=== PATIENT | male | born 1940 | race Caucasian/White ===

== ENCOUNTER 2023-12-10 14:40 | Inpatient (IN) | payer SELFPAY ==
[2023-12-10 15:20] VITALS: BP 123/75; PULSE 86; RESP 21; TEMP 36.4; O2SAT 93; BMI 43.7
[2023-12-10] MEDS: Glimepiride 1 MG Tablet 1.5 MG PO (17:31)
[2023-12-10] MEDS: Lisinopril 5 MG Tablet PO (17:31)
[2023-12-10] MEDS: Insulin Lispro 100 UNIT/ML INSULN.PEN SC ×2 (17:32→21:44)
[2023-12-10 17:35] LABS: Bedside Glucose 232 mg/dL (74-106)
[2023-12-10] MEDS: Acetaminophen 325 MG Tablet 650 MG PO ×2 (17:36→23:20)
[2023-12-10 18:00] VITALS: BP 126/85; PULSE 95; RESP 20; TEMP 36.2; O2SAT 92
[2023-12-10 20:12] VITALS: PULSE 98; RESP 16; O2SAT 97
[2023-12-10 20:30] VITALS: BP 137/84; PULSE 82; RESP 16; TEMP 36.7; O2SAT 97
[2023-12-10 21:25] VITALS: PULSE 99; O2SAT 93
[2023-12-10] MEDS: Senna/Docusate Sodium 1 Tablet 2 TABLET PO (21:36)
[2023-12-10] MEDS: Atorvastatin Calcium 40 MG Tablet PO (21:36)
[2023-12-10] MEDS: Menthol/Lanolin/Calamine/Znox 113 GM Tube 1 APPLIC TOPICAL (21:42)
[2023-12-10] MEDS: Nystatin Powder 15gm Bottle 1 APPLIC TOPICAL (21:43)
--- NOTE | 2023-12-10 21:55 | NURSING ---
Overnight pulse ox initiated by RT
[2023-12-10 21:56] VITALS: O2SAT 93
[2023-12-10 22:06] LABS: Bedside Glucose 190 mg/dL (74-106)
[2023-12-11] VITALS (11 sets, daily range): BP systolic 96–145; BP diastolic 58–90; PULSE 84–108; RESP 16–18; TEMP 36.4–36.9; O2SAT 88–96
[2023-12-11] MEDS: Enoxaparin 40 MG/0.4 ML Syringe SC (05:16)
[2023-12-11] MEDS: Ammonium Lactate 225 gm Bottle 1 APPLIC TOPICAL (05:16)
[2023-12-11] MEDS: Acetaminophen 325 MG Tablet 650 MG PO ×4 (05:16→23:18)
[2023-12-11 06:20] LABS: Bedside Glucose 139 mg/dL (74-106)
[2023-12-11 07:05] LABS: Hematocrit 40.3 % (40-54); Hemoglobin 13.6 g/dL (13.0-16.5); Mean Corp Hgb Conc 33.7 g/dL (32-36); Mean Corpuscular Hgb 31.9 pg (27.0-32.0); Mean Corpuscular Volume 94.6 fL (80-94); Mean Platelet Vol. 10.3 fl (6.2-12.0); Platelet Count 205 K/mm3 (150-450); RBC Distribution Width CV 12.4 % (11.6-14.6); RBC Distribution Width SD 43.1 fl (35.1-43.9); Red Blood Count 4.26 M/mm3 (4.6-6.2); White Blood Count 7.5 K/mm3 (4.4-11.0)
[2023-12-11 07:50] LABS: ALB/GLOB Ratio 0.7 RATIO (0.9-2.4); AST(SGOT) 31 U/L (15-37); Alanine Aminotransfer ALT/SGPT 33 U/L (16-61); Albumin, Serum 2.7 g/dL (3.2-5.0); Alkaline Phosphatase 51 U/L (45-117); Anion Gap 5 (5-15); BUN 17 mg/dL (7-18); BUN/Creat Ratio 16.3 RATIO (10-20); Calcium,Total 8.6 mg/dL (8.5-10.1); Chloride 108 mmol/L (98-107); Creatinine, Serum 1.04 mg/dL (0.70-1.30); EST Glomerular Filtration Rate 72 mL/min (>60); Est Glom Filt Rate - Afr Amer 87 mL/min (>60); Estimated Creatinine Clearance 66.33 ml/min; Globulin 3.9 g/dL (2.2-4.2); Glucose 146 mg/dL (74-106); Phosphorus 2.6 mg/dL (2.5-4.9); Potassium 3.8 mmol/L (3.5-5.1); Protein, Total 6.6 g/dL (6.4-8.2); Sodium Level 139 mmol/L (136-145)
[2023-12-11] MEDS: Aspirin E.C. 81 MG Tablet PO (08:17)
[2023-12-11] MEDS: Glimepiride 2 MG Tablet PO (08:17)
[2023-12-11] MEDS: Senna/Docusate Sodium 1 Tablet 2 TABLET PO ×2 (08:17→21:56)
[2023-12-11] MEDS: Clopidogrel Bisulfate 75 MG Tablet PO (08:17)
[2023-12-11] MEDS: Nystatin Powder 15gm Bottle 1 APPLIC TOPICAL ×2 (08:18→21:59)
[2023-12-11] MEDS: Menthol/Lanolin/Calamine/Znox 113 GM Tube 1 APPLIC TOPICAL ×2 (08:20→21:58)
--- NOTE | 2023-12-11 09:33 | CPS ---
Pt sat was 87-88% on RA. This RT placed pt on NC at 1L. RN aware
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
--- NOTE | 2023-12-11 11:10 | REHABEVAL_ITS ---
Admission Information Primary Diagnosis:: Post stroke debility Status Changes from Prescreening?: No changes Identified Actual Problem List:: Bleeding (Having epistaxis at times.), Skin Intergrity, Cognitve Impr/Memory Loss, Bowel, Constipation, Mobility Impaired, Self Care Deficit, Know.Dfct/Disease Process, Know.Dfct of Medicaitons, Diabetes, Hyperglycemia, BP, Hypertension, Alteration/ Air Exchange and Alteration-Leisure Activ. Potential Problem List:: DVT, Bleeding, Infection, UTI, Aspiration, Falls, Skin Integrity and Depression Risk of Complications DVT: LMWH and LIZ Hose Bleeding: Monitor Lab Values, Nursing to Teach Precautions for anti-coagulation therapy., Wound, if applicable, to be assessed every shift. and Stroke patients assessed for lethargy or change in status. Infection: Clinical Staff to Monitor for S/S of infection: and S/S of infection include fever, redness, warmth, etc. Urinary Tract Infection: Monitor for frequency, burning, discomfort, or incontinence. and Nursing will obtain urine sample for urinalysis and C&S when ordered. Aspiration: Clinical staff will monitor for coughing, drooling, congestion., Speech will evaluate swallowing and dsyphasia. and Nursing will monitor patient swallowing during meals. Falls: Patient will be evaluated for Fall Precautions and Patient will be placed on Fall Precautions as indicated per protocol. Skin Breakdown: Nursing will assess skin daily using assessment tool. and Nursing will place on Skin Breakdown Precautions as indicated. Pain: Clinical staff will assess patient's pain level per protocol., Medications will be given, if needed, and the pain level reassessed. and Other methods: Massage, distraction, decrease stimulus, etc. used PRN. Plan of Care Patient requires physician specializing in physical medicine and rehab oversight to provide close medical supervision of rehab issues including: Pain Management, Sleep Problems, Bowel and Bladder, Medical and co-morbidity Management, DVT prophylaxis, Rehabilitation Leadership and Coordination of treatment team Patient needs Physical Therapy: For a minimum of 1 hour and At least 5 out of 7 days Patient needs Physical Therapy to improve:: Mobility, Strengthening, Transfers, Stretching, ROM, Endurance, Stairs, Gait and Balance Patient needs Occupational Therapy: For a minimum of 1 hour and At least 5 out of 7 days Patient needs Occupational Therapy to improve ADL's incl.: Eating, Grooming, Bathing, Dressing, Toileting, Toilet transfers, Community Reintegration, Higher functioning activities, Household tasks, Adaptive Equipment, Splinting and Other activities as determined Patient requires speech therapy: For a minimum of 1 hour and At least 5 out of 7 days Patient requires speech therapy for: Swallowing, Cognition, Language Skills and Compensatory Strategies Patient requires 24/ Rehabilitation Nursing for: Pain Issues, Identifying and preventing risk factors, Monitoring and reporting current medical conditions, Assisting with ambulation, transfer, and all ADL's, Teaching patients about disease process and medications, Family teaching, Providing safe environment, Bowel and Bladder Issues, Skin integrity and Medication Management Patient needs Medical Director Occupational Health/ Case Management for: Discharge Planning, Arranging Home Equipment or Services and Family Interventions Patient needs Dietary and Nutrition Services for: Adequate Nutrition, Nut ritional Supplements and Nutritional Education Goals Goals Patient will remain: free from falls Patient will perform eating at: MOD I level of assist. Patient will perform bed mobility at: MOD I level of assist. Patient will complete transfers from bed to chair at: - (Min assist) Patient will ambulate: - (150 feet with least restrictive device at mod I He has been using a rollator at home prior to the stroke.) Patient will complete upper body dressing at: - (Set up) Patient will complete lower body dressing at: - (Minimal assistance with adaptive equipment as needed) Patient will complete toilet transfer at: - (Min assist with adaptive equipment as needed to increase independence with self-care.) Patient will complete toileting at: - (Min assist) Patient will perform bathing at: - (Supervision for upper body bathing and min assist with adaptive equipment as needed for lower body bathing.) Patient will perform Tub/Shower transfer at: - (Minimal assistance using DME as needed.) Patient will complete grooming at: - (Set up level while seated at the sink) Patient will achieve: 12 stairs (12 stairs at mod I with bilateral handrails to allow access to the main floor of the house he is currently living in.) Patient will have pain level of: of 3 or less Patient's skin will: remain intact Patient will receive: adequate nutrition. Discharge Planning Pt Prognosis for Sig. Practical Improv. w/in Reasonable Time: Good Estimated Length of stay (days): 28 Anticipated D/C Destination: Home w/ family or friends Was Preadmission Assessment Accurate?: Yes
[2023-12-11 11:59] LABS: Bedside Glucose 185 mg/dL (74-106)
[2023-12-11] MEDS: Insulin Lispro 100 UNIT/ML INSULN.PEN SC ×2 (12:13→17:17)
[2023-12-11 17:13] LABS: Bedside Glucose 179 mg/dL (74-106)
[2023-12-11] MEDS: Lisinopril 5 MG Tablet PO (17:18)
[2023-12-11] MEDS: Glimepiride 1 MG Tablet 1.5 MG PO (17:20)
[2023-12-11] MEDS: Atorvastatin Calcium 40 MG Tablet PO (21:56)
[2023-12-11 22:34] LABS: Bedside Glucose 176 mg/dL (74-106)
[2023-12-12] MEDS: Enoxaparin 40 MG/0.4 ML Syringe SC (05:48)
[2023-12-12] MEDS: Acetaminophen 325 MG Tablet 650 MG PO ×4 (05:49→23:48)
[2023-12-12] MEDS: Ammonium Lactate 225 gm Bottle 1 APPLIC TOPICAL (05:49)
[2023-12-12 06:00] VITALS: BP 139/80; PULSE 84; RESP 19; TEMP 36.6; O2SAT 96
[2023-12-12 06:34] LABS: Bedside Glucose 139 mg/dL (74-106)
[2023-12-12] MEDS: Glimepiride 2 MG Tablet PO (08:11)
[2023-12-12] MEDS: Senna/Docusate Sodium 1 Tablet 2 TABLET PO ×2 (08:11→21:26)
[2023-12-12] MEDS: Clopidogrel Bisulfate 75 MG Tablet PO (08:12)
[2023-12-12] MEDS: Aspirin E.C. 81 MG Tablet PO (08:13)
[2023-12-12] MEDS: Nystatin Powder 15gm Bottle 1 APPLIC TOPICAL ×2 (08:13→21:27)
[2023-12-12] MEDS: Menthol/Lanolin/Calamine/Znox 113 GM Tube 1 APPLIC TOPICAL ×2 (08:13→21:27)
[2023-12-12 10:00] VITALS: O2SAT 96
[2023-12-12] MEDS: Insulin Lispro 100 UNIT/ML INSULN.PEN SC ×2 (11:44→17:00)
[2023-12-12 12:00] LABS: Bedside Glucose 213 mg/dL (74-106)
[2023-12-12 16:59] LABS: Bedside Glucose 194 mg/dL (74-106)
[2023-12-12] MEDS: Glimepiride 1 MG Tablet 1.5 MG PO (17:01)
[2023-12-12] MEDS: Lisinopril 5 MG Tablet PO (17:01)
[2023-12-12 17:58] VITALS: BP 146/84; PULSE 87; RESP 16; TEMP 36.9; O2SAT 93
[2023-12-12] MEDS: Atorvastatin Calcium 40 MG Tablet PO (21:26)
[2023-12-12 22:29] LABS: Bedside Glucose 180 mg/dL (74-106)
[2023-12-13] MEDS: Ammonium Lactate 225 gm Bottle 1 APPLIC TOPICAL (05:34)
[2023-12-13] MEDS: Acetaminophen 325 MG Tablet 650 MG PO ×4 (05:36→23:51)
[2023-12-13] MEDS: Enoxaparin 40 MG/0.4 ML Syringe SC (05:36)
[2023-12-13 05:40] VITALS: BP 110/61; PULSE 76; RESP 17; TEMP 36.7; O2SAT 95
[2023-12-13] MEDS: Glimepiride 2 MG Tablet PO (07:24)
[2023-12-13] MEDS: Senna/Docusate Sodium 1 Tablet 2 TABLET PO ×2 (07:24→21:31)
[2023-12-13 07:25] VITALS: O2SAT 95
[2023-12-13] MEDS: Clopidogrel Bisulfate 75 MG Tablet PO (07:25)
[2023-12-13] MEDS: Aspirin E.C. 81 MG Tablet PO (07:25)
[2023-12-13] MEDS: Nystatin Powder 15gm Bottle 1 APPLIC TOPICAL ×2 (07:25→21:32)
[2023-12-13] MEDS: Menthol/Lanolin/Calamine/Znox 113 GM Tube 1 APPLIC TOPICAL ×2 (07:25→21:31)
[2023-12-13 07:29] LABS: Bedside Glucose 136 mg/dL (74-106)
[2023-12-13 11:53] LABS: Bedside Glucose 178 mg/dL (74-106)
[2023-12-13] MEDS: Insulin Lispro 100 UNIT/ML INSULN.PEN SC ×2 (11:55→17:05)
[2023-12-13 16:35] LABS: Bedside Glucose 261 mg/dL (74-106)
[2023-12-13] MEDS: Lisinopril 5 MG Tablet PO (17:05)
[2023-12-13] MEDS: Glimepiride 1 MG Tablet 1.5 MG PO (17:07)
[2023-12-13 17:35] VITALS: BP 141/70; PULSE 96; RESP 20; TEMP 36.8; O2SAT 92
[2023-12-13] MEDS: Atorvastatin Calcium 40 MG Tablet PO (21:31)
[2023-12-13 21:35] VITALS: BP 152/88; PULSE 86; RESP 16; TEMP 36.9; O2SAT 97
[2023-12-13 21:51] LABS: Bedside Glucose 184 mg/dL (74-106)
[2023-12-14] MEDS: Acetaminophen 325 MG Tablet 650 MG PO ×4 (05:33→23:48)
[2023-12-14] MEDS: Ammonium Lactate 225 gm Bottle 1 APPLIC TOPICAL (05:34)
[2023-12-14] MEDS: Enoxaparin 40 MG/0.4 ML Syringe SC (05:35)
[2023-12-14 06:04] VITALS: BP 110/60; PULSE 75; RESP 16; TEMP 37; O2SAT 95
[2023-12-14 06:51] LABS: Bedside Glucose 135 mg/dL (74-106)
[2023-12-14 07:03] VITALS: O2SAT 90
[2023-12-14] MEDS: Glimepiride 2 MG Tablet PO (07:31)
[2023-12-14] MEDS: Aspirin E.C. 81 MG Tablet PO (07:31)
[2023-12-14] MEDS: Menthol/Lanolin/Calamine/Znox 113 GM Tube 1 APPLIC TOPICAL ×2 (07:31→20:49)
[2023-12-14] MEDS: Senna/Docusate Sodium 1 Tablet 2 TABLET PO ×2 (07:31→20:49)
[2023-12-14] MEDS: Clopidogrel Bisulfate 75 MG Tablet PO (07:31)
[2023-12-14] MEDS: Nystatin Powder 15gm Bottle 1 APPLIC TOPICAL ×2 (07:32→20:49)
[2023-12-14 08:03] VITALS: O2SAT 91
[2023-12-14 08:10] VITALS: RESP 18; O2SAT 91
[2023-12-14 11:24] LABS: Bedside Glucose 219 mg/dL (74-106)
[2023-12-14] MEDS: Insulin Lispro 100 UNIT/ML INSULN.PEN SC ×2 (11:57→17:15)
--- NOTE | 2023-12-14 12:55 | CASEMGMT ---
Addendum entered by Shari Scott 12/14/23 13:20: SW provided verbal hand off to [facility] Liaison/PFS for ongoing payment. Original Note: Social Work IDT met with patient, , dtr and son for Team meeting. Discussed patient's progress in PT/OT/ST/SN. Pt is private pay and pays for 7 days at at time. Will ReTeam weekly to determine pt's progress and LOS. Pt will need a sleep study at [place], per Dr. PAREDES to follow for overnight O2 needs as well. SW to coordinate DC needs. LENA also discussed offering family training with son and DIL who cares for pt at baseline. Son appreciative. SW will continue to follow. Shari Scott, PARTNER [employer]IANCE MANAGER BUILDER OPERATOR
--- NOTE | 2023-12-14 14:54 | PCM.PROGNOTE ---
Subjective Subjective Francis was seen on team rounds today. His , daughter Saniya and son-in-law Sean were present in the room for rounds. Afebrile VSS -blood pressure tends to be normal in the morning at 6 AM but it is mildly elevated during the day and is ranged from 141/72 152/88 over the weekend. Heart rate is within normal limits. Maintaining appropriate oxygen saturation on RA - 91-96% on RA while awake. Overnight trending pulse ox revealed hypoxemia while sleeping and he is on O2 while sleeping now. Plan Sleep study on the night of DC from rehab. Pt and family are agreeable to this. DTR and son-in-law are both on PAP therapy. Oral intake - FOOD good FLUIDS good The blood sugar record was reviewed. Blood sugar at supper yesterday was 261 and he received 2 units of insulin. Blood sugar at at bedtime was 184. No hypoglycemia. Discussed with nursing - no problems that need addressed Reviewed the THERAPY notes Medication list reviewed. Family does not know why the Glucophage was discontinued at the previous hospital. He was changed to Amaryl at the last hospital.......? creat clearance is 66 and the GFR is 72 so I do not know why either unless the creat was increased at admission to the previous hospital. Or maybe because he had contrast? He is currently taking Amaryl 2 mg in the a.m. and 1.5 mg at 1700. Objective Data Objective Data Vital Signs: Vital Signs Temp Pulse Resp BP Pulse Ox O2 Del Method O2 Flow Rate 98.6 F 75 18 110/60 91 Room Air 2 12/14/23 06:04 12/14/23 06:04 12/14/23 08:10 12/14/23 06:04 12/14/23 08:10 12/14/23 08:10 12/14/23 06:04 FiO2 21 12/10/23 21:25 Oxygen Flow Rate (L/min) 2 Oxygen Delivery Method Room Air Weight: 279 lb 1.683 oz Body Mass Index (BMI) 43.7 Intake & Output: Intake and Output for Last 24 Hours 12/12/23 12/13/23 12/14/23 23:59 23:59 23:59 Intake Total 1510 / 1610 1350 / 1850 1100 / 1100 Output Total 1125 / 1400 2024 / 2024 500 / 500 Balance 385 / 210 -675 / -175 600 / 600 Lab / Micro Data 12/11/23 06:47 12/11/23 06:47 Labs: Laboratory Results - last 24 hr 12/13/23 16:15: POC Glucose 261 H 12/13/23 21:31: POC Glucose 184 H 12/14/23 06:33: POC Glucose 135 H 12/14/23 11:06: POC Glucose 219 H Assessment & Plan Assessment/Plan (1) Debility: (2) 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 Continue therapy 2. DC the afternoon dose of Amaryl and start Glucophage 500 mg p.o. twice daily. Continue sliding scale insulin 3 times daily AC. 3. Plan sleep study on the night he is discharged from rehab. Will continue supplemental oxygen at 2 L/min anytime he is sleeping 4. BL unna boots applied to the LE's for stasis dermatitis. 3 layer boot with Coban and AQUILINO wraps in addition to the unna boot. 5. Avoid diuretics if possible. Will have him follow up at the wound care center post DC for Circaids for compression. 6. Increase Lisinopril to 7.5 mg 7. Needs an event monitor at discharge. Charges/Coding Visit Charges Inpatient E&M: 87066 Subs Hosp L2
[2023-12-14 16:16] LABS: Bedside Glucose 220 mg/dL (74-106)
[2023-12-14] MEDS: metFORMIN HCl 500 MG Tablet PO (17:00)
[2023-12-14] MEDS: Lisinopril 2.5 MG Tablet 7.5 MG PO (17:16)
[2023-12-14 17:53] VITALS: BP 145/87; PULSE 96; RESP 17; TEMP 36.7; O2SAT 97
[2023-12-14] MEDS: Atorvastatin Calcium 40 MG Tablet PO (20:49)
[2023-12-14 21:30] LABS: Bedside Glucose 147 mg/dL (74-106)
[2023-12-15 06:00] VITALS: BP 116/76; PULSE 72; RESP 16; TEMP 36.4; O2SAT 97
[2023-12-15] MEDS: Acetaminophen 325 MG Tablet 650 MG PO ×3 (06:12→16:58)
[2023-12-15] MEDS: Enoxaparin 40 MG/0.4 ML Syringe SC (06:12)
[2023-12-15 06:53] LABS: Bedside Glucose 133 mg/dL (74-106)
[2023-12-15 07:11] VITALS: O2SAT 97
[2023-12-15] MEDS: Clopidogrel Bisulfate 75 MG Tablet PO (07:14)
[2023-12-15] MEDS: Aspirin E.C. 81 MG Tablet PO (07:14)
[2023-12-15] MEDS: metFORMIN HCl 500 MG Tablet PO ×2 (07:14→16:58)
[2023-12-15] MEDS: Glimepiride 2 MG Tablet PO (07:14)
[2023-12-15] MEDS: Senna/Docusate Sodium 1 Tablet 2 TABLET PO (07:14)
[2023-12-15] MEDS: Menthol/Lanolin/Calamine/Znox 113 GM Tube 1 APPLIC TOPICAL ×2 (07:15→21:21)
[2023-12-15] MEDS: Nystatin Powder 15gm Bottle 1 APPLIC TOPICAL ×2 (07:15→21:22)
[2023-12-15 07:53] VITALS: RESP 18; O2SAT 94
--- NOTE | 2023-12-15 09:03 | NURSING ---
pt off floor to rad for MBS w/speech
--- NOTE | 2023-12-15 09:48 | PCM.PROGNOTE ---
Subjective Subjective Afebrile VSS -blood pressure is well-controlled in the a.m. but elevated at 5 or 6 PM. Has been getting lisinopril at 5 PM. Heart rate is within normal limits. Maintaining appropriate oxygen saturation on RA-90 to 97% on room air while awake. Wearing 2 L of oxygen while sleeping and pulse ox has been in the high 90s. Oral intake - FOOD good FLUIDS good The blood sugar record was reviewed. Has been getting 1 to 2 units of insulin mostly at supper. Fasting was 133 today. He was 147 at at bedtime. Blood sugar at supper yesterday was 220 and lunchtime was 219. He received total 2 units of insulin yesterday. Glucophage was restarted yesterday. Discussed with nursing - no problems that need addressed Reviewed the THERAPY notes Medication list reviewed. Denies pain in his legs today. No SOB, rare cough, no CP, no abd pain and no calf tenderness or dysuria. Objective Data Objective Data Vital Signs: Vital Signs Temp Pulse Resp BP Pulse Ox O2 Del Method O2 Flow Rate 97.6 F L 72 18 116/76 94 Room Air 2 12/15/23 06:00 12/15/23 06:00 12/15/23 07:53 12/15/23 06:00 12/15/23 07:53 12/15/23 07:53 12/15/23 07:11 FiO2 21 12/10/23 21:25 Oxygen Flow Rate (L/min) 2 Oxygen Delivery Method Room Air Weight: 279 lb 1.683 oz Body Mass Index (BMI) 43.7 Intake & Output: Intake and Output for Last 24 Hours 12/13/23 12/14/23 12/15/23 23:59 23:59 23:59 Intake Total 1350 / 1850 1555 / 1555 360 / 360 Output Total 2024 / 2024 925 / 1375 750 / 750 Balance -675 / -175 630 / 180 -390 / -390 Lab / Micro Data 12/11/23 06:47 12/11/23 06:47 Labs: Laboratory Results - last 24 hr 12/14/23 11:06: POC Glucose 219 H 12/14/23 15:55: POC Glucose 220 H 12/14/23 20:51: POC Glucose 147 H 12/15/23 06:14: POC Glucose 133 H Physical Exam Const alert, oriented x3 and no apparent distress General Appearance: cooperative HEENT moist oral mucous membranes Resp normal respiratory effort, normal air movement and clear to auscultation bilaterally Cardio regular rate, regular rhythm and no gallops GI normal to inspection, nondistended, normoactive bowel sounds, soft to palpation and non-tender Extremity Extremity Narrative: Unna boots are in place BL Skin Rashes: no rashes Assessment & Plan Assessment/Plan (1) Debility: (2) 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 Continue therapy 2. Change lisinopril to 5 mg p.o. twice daily 3. Increase the a.m. Glucophage to 750 mg and continue 500 mg at supper. Continue Amaryl 2 mg in the AM. 4. Recheck a BMP Thursday 5. Remove Unna boots on Thursday and reassess need for continued Unna boots. 6. Reviewed the results of the swallowing study today with the speech therapist. Will continue with current diet. Francis has some dysphagia but, he is using compensatory strategies and has not had PNA as OP. Charges/Coding Visit Charges Inpatient E&M: 49468 Subs Hosp L1
[2023-12-15 10:07] VITALS: BP 128/75; PULSE 88; RESP 17; O2SAT 96
[2023-12-15] MEDS: Lisinopril 5 MG Tablet PO ×2 (10:39→21:22)
--- NOTE | 2023-12-15 11:12 | SP.MBSS_ITS ---
Modified Barium Swallow Patient Information Study Date: 12/15/23 Study Time: 09:15 Direct Billable Minutes: 135 Total Minutes procedure & reportin Diagnosis: ischemic CVA posterior cerebral artery territory/Dysphagia Referring Physician: Mitzy Levy Reason for Referral: MBSS recommended following TECHNICAL MGR CBSE - coughing/ throat clearing w/ PO intake - to objectively assess swallow function, identify cause of swallow dysfunction & deficits necessitating intervention, and to trial compensatory strategies for improved specificity of dysphagia interventions provided. Medical History: This patient is an 83 y/o male with a PMHx of ischemic CVA in 2008, morbid obesity, venous insufficiency, DM II (not adequately controlled), Dyslipidemia, suspected sleep apnea, suspected BPH (recent UTI) and HTN who presented to the ED at [facility] on 12/06/2023 complaining of dizziness, slurred speech and difficulty walking when awakening that morning. He was diagnosed with a urinary tract infection and transferred to [facility] for possible CVA. An MRI of the brain demonstrated 2 areas of discrete infarction in the vertebrobasilar territory (left cerebellar hemisphere and left mesial thalamic areas) suggesting possible embolic mechanism. He was admitted to the [facility] Inpatient Rehab Unit at [facility] on 12/10/23 for 3 hours of therapy daily to restore function/independence at or near his level prior to the most recent stroke. He was subsequently referred to and CBSE was completed, which identif ied/necessitated the need for objective assessment via MBSS. Current Diet Ordered: regular textures/thin liquids Dentition: Natural Teeth and Missing Teeth (missing molars) Mental Status: Impaired (slow to process and respond, but sufficient for participation in MBSS ) Respiratory Status: Oxygenating on Room Air Penetration-Aspiration Scale Penetration-Aspiration Scale: OBJECTIVE ASSESSMENT OF SWALLOW FUNCTION (QUANTITATIVE ? PER TRIAL): PENETRATION / ASPIRATION SCALE (CANSECO): 1 = does not enter airway 2 = enters airway/above vocal folds/ejected 3 = enters airway/above vocal folds/not ejected 4 = enters airway/contacts vocal folds/ejected 5 = enters airway/contacts vocal folds/not ejected 6 = enters airway/below vocal folds/ejected 7 = enters airway/below vocal folds/not ejected despite effort 8 = enters airway/below vocal folds/no effort Penetration-Aspiration Scale Score Thin Liquid via teaspoon: Result: 1= does not enter airway Thin Liquid via teaspoon Trial 2: Result: 3= enters airways/above vocal folds/not ejected Thin Liquid via small single sip: cup: Result: 3= enters airways/above vocal folds/not ejected Thin Liquid via small single sip: cup Trial 2: Result: 5= enters airways/contacts vocal folds/not ejected Thin Liquid via cup, cued to swallow Hard & Fast: Result: 3= enters airways/above vocal folds/not ejected Thin Liquid via small single sip: cup Chin tuck: Result: 3= enters airways/above vocal folds/not ejected Thin Liquid via single sip: straw: Result: 5= enters airways/contacts vocal folds/not ejected Kenneth Thick Liquid via small single sip: cup: Result: 5= enters airways/contacts vocal folds/not ejected Pudding via teaspoon: Result: 1= does not enter airway Pudding via teaspoon w/ esophageal clearance screening: Result: 1= does not enter airway Cookie: Result: 1= does not enter airway Thin Liquid via cup w/ a cued 3 second preparatory set: Result: 2= enter airway/above vocal folds/ejected Thin Liquid via cup w/ effortful breath hold/swallow/exhale: Result: 3= enters airways/above vocal folds/not ejected Oral Phase Labial Seal: No Labial Escape Tongue Control During Bolus Hold: Posterior escape of less than half of bolus Bolus Preparation/Mastication: Slow prolonged chewing/mashing with complete recollection Bolus Transport/Lingual Motion: Repetitive/disorganized tongue motion Oral Residue: Trace residue lining oral structures Pharyngeal Phase Initiation of Pharyngeal Swallow: Bolus head in pyriforms Soft Palate Elevation: No bolus between soft palate and pharyngeal wall Laryngeal Elevation: Partial superior movement thyroid cart/partial apprx aryt- epig petiole Anterior Hyoid Excursion: Partial anterior movement Epiglottic Movement: Complete inversion Laryngeal Vestibule Closure at Height of Swallow: Incomplete; narrow column of air/contrast in laryngeal vestibule Pharyngeal Stripping Wave: Present - diminished Pharyngoesophageal Segment Opening: Complete distension and complete duration; no obstruction of flow Tongue Base Retraction: Wide column of contrast between tongue base & post. pharyngeal wall Pharyngeal Residue: Trace residue within or on pharyngeal structures Esophageal Phase Esophageal Clearance: Esophageal retention Treatment Strategies Effects of treatment strategies attemped:: Reduced bolus size = effective Chin tuck = not effective Effortful breath hold/swallow/exhale = not effective Effortful swallow = effective 3 second preparatory set = effective Cough and reswallow = effective Diagnosis/Impression Diagnosis: Oropharyngeal dysphagia Impression: The oral phase is characterized by... * Sufficient labial seal, no anterior bolus loss * Timely mastication of solids * Significantly impaired AP bolus transportation w/ repetitive rocking and incoordination during transit with trace/mild bolus loss to the floor of the mouth/buccal cavities along w/ posterior bolus loss of less than half The pharyngeal phase is characterized by... * Reduced tongue base retraction/posterior pharyngeal wall contraction with a wide column of contrast between the tongue base and pharyngeal wall w/ delayed pharyngeal stripping wave initiation * Thin liquid spills to the pyriforms prior to swallow onset, with the pooled liquid then penetrating the laryngeal vestibule during the swallow d/t delayed swallow onset/laryngeal vestibule closure * Due to body habitus and patient positioning limitations, it was difficult to consistently see the vocal folds throughout the study. * To improve visualization of the vocal folds, instructed the patient to tilt his chin upward, at which point a small amount of barium was noted at the anterior commissure 1x following the initial seven thin liquid trials. This was not again visualized throughout the remainder of the study, although vocal folds visualization was difficult and aspiration cannot be ruled out. ? * Trace to mild thin liquid contrast lined the tongue base to the vallecula after the initial swallow - patient occasionally spontaneously initiated a second swallow.? * Laryngeal vestibule penetration increased in depth and amount compared to thin liquid penetration. * Use of an effortful swallow, 3 second preparatory set and cough & reswallow were all effective strategies to reduce/eliminate penetration and decrease the depth/severity * The esophageal phase is characterized... * Esophageal retention of pudding was noted in the medial thoracic esophagus - consider referral to GI as an outpatient, Recommendations Diet: Regular Textures and Thin Liquids Compensatory Strategies: Small Bites, Small Sips, Slow Rate (3 second preparatory set w/ effortful swallow, cough and re-swallow at reasonable intervals t/o meal to clear the laryngeal vestibule of penetration), Sitting upright, Remain sitting upright for 30 minutes after PO intake and Assist with verbal cues to use recommended strategies Supervision: Distant Supervision Recommend Repeat Modified Barium Swallow: No Need for Skilled Speech Therapy Services: Yes Comment: This patient requires skilled ST dysphagia intervention to instruct w/ compensatory strategies, assess diet tolerance w/ strategy use and initiate oropharyngeal strengthening exercises to improve swallow function/reduce aspiration risk. Recommended Referrals: GI Consult (as an outpatient following discharge) Education Completed: 1. Described result of evaluation., 2. Pt understands evaluation & agrees with goals and treatment plan. and 7. Pt requires further education on strategies & risks. Status Active ST Patient: Active
[2023-12-15 11:18] LABS: Bedside Glucose 192 mg/dL (74-106)
[2023-12-15] MEDS: Insulin Lispro 100 UNIT/ML INSULN.PEN SC ×2 (11:49→16:58)
--- NOTE | 2023-12-15 15:59 | CHAPLAIN ---
Type of Pastoral Visit ___ Initial Visit ___ Follow-up Visit ___ On-call Visit ___ General Patient Visit ___ Spiritual Assessment ___ Family Conference ___ Bereavement ___ Rapid Response ___ Code Blue ___ Other (describe below) Pastoral Care Referral From ___ Patient ___ Family ___ Nurse ___ Physician ___ Service Promoter Salesperson ___ Picture Framer ___ Other (describe below) Sacrament/Intervention ___ Active listening ___ Anointing ___ Denominational ___ Bereavement ___ Communion ___ Arlte exploration ___ ___ Life review ___ Prayer ___ Reconciliation ___ Sacrament of Sick ___ Supportive presence ___ Wedding ___ Other (describe below) Pastoral Comments patient was sleeping, did not disturb
[2023-12-15 16:28] LABS: Bedside Glucose 161 mg/dL (74-106)
[2023-12-15 17:54] VITALS: BP 128/79; PULSE 94; RESP 18; TEMP 36.6; O2SAT 96
[2023-12-15] MEDS: Atorvastatin Calcium 40 MG Tablet PO (21:20)
[2023-12-15 21:50] LABS: Bedside Glucose 152 mg/dL (74-106)
[2023-12-15 21:55] VITALS: BMI 43.7
[2023-12-15 21:58] VITALS: RESP 17; O2SAT 94
[2023-12-16] MEDS: Acetaminophen 325 MG Tablet 650 MG PO ×5 (00:11→23:56)
[2023-12-16 05:34] VITALS: BP 111/67; PULSE 79; RESP 16; TEMP 36.4; O2SAT 99
[2023-12-16 05:35] VITALS: BMI 43.4
[2023-12-16] MEDS: Enoxaparin 40 MG/0.4 ML Syringe SC (05:58)
[2023-12-16 06:33] LABS: Bedside Glucose 130 mg/dL (74-106)
[2023-12-16] MEDS: Lisinopril 5 MG Tablet PO ×2 (08:15→21:12)
[2023-12-16] MEDS: Clopidogrel Bisulfate 75 MG Tablet PO (08:15)
[2023-12-16] MEDS: Glimepiride 2 MG Tablet PO (08:15)
[2023-12-16] MEDS: metFORMIN HCl 500 MG Tablet 750 MG PO (08:15)
[2023-12-16] MEDS: Aspirin E.C. 81 MG Tablet PO (08:15)
[2023-12-16] MEDS: Nystatin Powder 15gm Bottle 1 APPLIC TOPICAL ×2 (08:16→21:12)
[2023-12-16] MEDS: Menthol/Lanolin/Calamine/Znox 113 GM Tube 1 APPLIC TOPICAL ×2 (08:16→21:13)
--- NOTE | 2023-12-16 10:03 | PN_ITS ---
Subjective Subjective Afebrile VSS -blood pressure is now well-controlled. Heart rate is within normal limits. Maintaining appropriate oxygen saturation on RA Oral intake - FOOD good FLUIDS good The blood sugar record was reviewed. All blood sugars yesterday were less than 200 with no hypoglycemia. Discussed with nursing - Nursing states incontinent of liquid stool several times last night but, there are only 2 BM's recorded for yesterday. He is not taking any stool softeners. Loose stool started prior to the initiation of Glucophage. Had been on an antibiotic for UTI at presentation to rehab. Reviewed the THERAPY notes Medication list reviewed. Denies lightheadedness, cephalgia, sore throat, shortness of breath at rest, nausea/vomiting/abdominal pain/constipation, dysuria and tells me that the pain he was having in his anterior shins is better. Denies calf tenderness. He does have a cough and this is frequently associated with eating and drinking but he is able to clear his airway and has not had pneumonia in the past few years. Objective Data Objective Data Vital Signs: Vital Signs Temp Pulse Resp BP Pulse Ox O2 Del Method O2 Flow Rate 97.5 F L 79 16 111/67 99 Nasal Cannula 2 12/16/23 05:34 12/16/23 05:34 12/16/23 05:34 12/16/23 05:34 12/16/23 05:34 12/16/23 05:34 12/16/23 07:42 FiO2 21 12/10/23 21:25 Oxygen Flow Rate (L/min) 2 Oxygen Delivery Method Nasal Cannula Weight: 277 lb 1.937 oz Body Mass Index (BMI) 43.4 Intake & Output: Intake and Output for Last 24 Hours 12/14/23 12/15/23 12/16/23 23:59 23:59 23:59 Intake Total 1555 / 1555 1630 / 1630 390 / 390 Output Total 925 / 1375 1900 / 1900 450 / 450 Balance 630 / 180 -270 / -270 -60 / -60 Lab / Micro Data 12/11/23 06:47 12/11/23 06:47 Labs: Laboratory Results - last 24 hr 12/15/23 11:00: POC Glucose 192 H 12/15/23 16:10: POC Glucose 161 H 12/15/23 21:16: POC Glucose 152 H 12/16/23 06:09: POC Glucose 130 H Physical Exam Const alert, oriented x3 and no apparent distress General Appearance: cooperative HEENT moist oral mucous membranes Resp normal respiratory effort, normal air movement and clear to auscultation bilaterally Resp Narrative: Breath sounds are diminished, more likely than not secondary to body habitus. He had a slight wheeze in the R upper posterior lung field and this resolved after a cough. No crackles after a few deep breaths. Some SOB with exertion and this is likely related to morbid obesity, decreased activity and de- conditioning. Effort and Inspection: Negative for tachypneic or respiratory distress Cardio regular rate, regular rhythm and no gallops GI normal to inspection, nondistended, normoactive bowel sounds, soft to palpation and non-tender Extremity no calf tenderness Extremity Narrative: Unna boots are in place BL and there is much better control of the edema. Skin Rashes: no rashes Neuro Neuro Narrative: Less dysarthria......not slurring as much as he was at admission to rehab. Strength is improving. 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 Continue therapy 2. Had 2 stools yesterday and has had 9 overnight or today so we will cancel the C. difficile. Continue metformin. Blood sugars are now well-controlled with no hypoglycemia. 3. The blood pressure is under much better control and is at goal now. He denies lightheadedness. Will continue lisinopril 5 mg twice daily. 4. Recheck a BMP on Thursday. 5. Change Accu-Cheks to twice daily 6. When we have a discharge date will alert the sleep lab and attempt to schedule his sleep study for the night of discharge. Will need to repeat an overnight trending pulse ox prior to discharge to see if he requires oxygen at home. Charges/Coding Visit Charges Inpatient E&M: 56184 Subs Hosp L1
[2023-12-16 12:14] LABS: Bedside Glucose 146 mg/dL (74-106)
[2023-12-16 14:25] VITALS: BMI 43.4
[2023-12-16 16:53] LABS: Bedside Glucose 139 mg/dL (74-106)
[2023-12-16] MEDS: metFORMIN HCl 500 MG Tablet PO (17:09)
[2023-12-16 17:19] VITALS: BP 120/73; PULSE 94; RESP 18; TEMP 36.9; O2SAT 93
[2023-12-16] MEDS: Atorvastatin Calcium 40 MG Tablet PO (21:13)
[2023-12-16 21:15] VITALS: BMI 43.4
[2023-12-16 21:41] LABS: Bedside Glucose 159 mg/dL (74-106)
[2023-12-16 22:00] VITALS: RESP 16; O2SAT 96
[2023-12-17] MEDS: Enoxaparin 40 MG/0.4 ML Syringe SC (05:43)
[2023-12-17] MEDS: Acetaminophen 325 MG Tablet 650 MG PO ×2 (05:43→16:39)
[2023-12-17 06:00] VITALS: BP 110/65; PULSE 81; RESP 16; TEMP 36.9; O2SAT 96
[2023-12-17 06:40] LABS: Bedside Glucose 119 mg/dL (74-106)
[2023-12-17] MEDS: Lisinopril 5 MG Tablet PO ×2 (08:40→20:39)
[2023-12-17] MEDS: Clopidogrel Bisulfate 75 MG Tablet PO (08:40)
[2023-12-17] MEDS: Glimepiride 2 MG Tablet PO (08:40)
[2023-12-17] MEDS: Aspirin E.C. 81 MG Tablet PO (08:40)
[2023-12-17] MEDS: metFORMIN HCl 500 MG Tablet 750 MG PO (08:40)
[2023-12-17] MEDS: Menthol/Lanolin/Calamine/Znox 113 GM Tube 1 APPLIC TOPICAL ×2 (08:45→20:38)
[2023-12-17] MEDS: Nystatin Powder 15gm Bottle 1 APPLIC TOPICAL ×2 (08:46→20:38)
--- NOTE | 2023-12-17 11:57 | PCM.PROGNOTE ---
Objective Data Objective Data Vital Signs: Vital Signs Temp Pulse Resp BP Pulse Ox O2 Del Method O2 Flow Rate 98.5 F 81 16 110/65 96 Room Air 2 12/17/23 06:00 12/17/23 06:00 12/17/23 06:00 12/17/23 06:00 12/17/23 06:00 12/17/23 06:00 12/16/23 16:14 FiO2 21 12/10/23 21:25 Oxygen Flow Rate (L/min) 2 Oxygen Delivery Method Room Air Weight: 277 lb 1.937 oz Body Mass Index (BMI) 43.4 Intake & Output: Intake and Output for Last 24 Hours 12/15/23 12/16/23 12/17/23 23:59 23:59 23:59 Intake Total 1630 / 1630 1500 / 1500 400 / 400 Output Total 2100 / 2100 1850 / 1850 575 / 575 Balance -470 / -470 -350 / -350 -175 / -175 Lab / Micro Data 12/11/23 06:47 12/11/23 06:47 Labs: Laboratory Results - last 24 hr 12/16/23 11:56: POC Glucose 146 H 12/16/23 16:32: POC Glucose 139 H 12/16/23 21:17: POC Glucose 159 H 12/17/23 06:19: POC Glucose 119 H
[2023-12-17 12:25] LABS: Bedside Glucose 157 mg/dL (74-106)
[2023-12-17 15:23] VITALS: BMI 43.4
--- NOTE | 2023-12-17 16:21 | CHAPLAIN ---
Type of Pastoral Visit _x__ Initial Visit ___ Follow-up Visit ___ On-call Visit ___ General Patient Visit ___ Spiritual Assessment ___ Family Conference ___ Bereavement ___ Rapid Response ___ Code Blue ___ Other (describe below) Pastoral Care Referral From _x__ Patient ___ Family ___ Nurse ___ Physician ___ Shirring Tender ___ [facility] Hand ___ Other (describe below) Sacrament/Intervention _x__ Active listening ___ Anointing ___ Latter-Day ___ Bereavement ___ Communion _x__ Arlet exploration ___ _x__ Life review _x__ Prayer ___ Reconciliation ___ Sacrament of Sick ___ Supportive presence ___ Wedding ___ Other (describe below) Pastoral Comments the patient was resting after his therapy sessions but awake; pt is welcoming and speaks freely about his life; pt has been an 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
[2023-12-17] MEDS: metFORMIN HCl 500 MG Tablet PO (16:39)
[2023-12-17 16:57] LABS: Bedside Glucose 127 mg/dL (74-106)
[2023-12-17 17:42] VITALS: BP 127/77; PULSE 96; RESP 18; TEMP 36.6; O2SAT 96
[2023-12-17] MEDS: Atorvastatin Calcium 40 MG Tablet PO (20:39)
[2023-12-18 04:49] LABS: Anion Gap 8 (5-15); BUN 25 mg/dL (7-18); BUN/Creat Ratio 25.8 RATIO (10-20); Calcium,Total 8.9 mg/dL (8.5-10.1); Chloride 103 mmol/L (98-107); Creatinine, Serum 0.97 mg/dL (0.70-1.30); EST Glomerular Filtration Rate 78 mL/min (>60); Est Glom Filt Rate - Afr Amer 95 mL/min (>60); Estimated Creatinine Clearance 70.83 ml/min; Glucose 135 mg/dL (74-106); Sodium Level 136 mmol/L (136-145)
[2023-12-18] MEDS: Enoxaparin 40 MG/0.4 ML Syringe SC (06:05)
[2023-12-18] MEDS: Acetaminophen 325 MG Tablet 650 MG PO ×3 (06:06→17:03)
[2023-12-18 06:09] VITALS: BP 143/80; PULSE 91; RESP 19; TEMP 36.4; O2SAT 94
[2023-12-18 06:58] LABS: Bedside Glucose 144 mg/dL (74-106)
[2023-12-18] MEDS: Glimepiride 2 MG Tablet PO (07:48)
[2023-12-18] MEDS: Aspirin E.C. 81 MG Tablet PO (07:48)
[2023-12-18] MEDS: Clopidogrel Bisulfate 75 MG Tablet PO (07:48)
[2023-12-18] MEDS: metFORMIN HCl 500 MG Tablet 750 MG PO (07:48)
[2023-12-18] MEDS: Lisinopril 5 MG Tablet PO ×2 (07:48→20:34)
[2023-12-18] MEDS: Menthol/Lanolin/Calamine/Znox 113 GM Tube 1 APPLIC TOPICAL ×2 (07:52→20:35)
[2023-12-18] MEDS: Nystatin Powder 15gm Bottle 1 APPLIC TOPICAL ×2 (07:53→20:35)
[2023-12-18 07:54] VITALS: BP 113/60; PULSE 86
[2023-12-18 11:51] VITALS: BMI 43.4
--- NOTE | 2023-12-18 13:06 | PCM.PROGNOTE ---
Subjective Subjective Afebrile VSS - Maintaining appropriate oxygen saturation on RA Oral intake - FOOD good FLUIDS good Discussed with nursing - no problems that need addressed Reviewed the THERAPY notes Medication list reviewed. Tells me that his legs are feeling better. Edema has decreased considerably. Denies lightheadedness, CP, SOB at rest, dysuria and calf pain. Still frequently clearing his throat and coughing with and after eating/drinking. All lab from this morning was personally reviewed. Sodium is 136 and the potassium is 4.0. The BUN is 25 which is up from 17 on 12/11/2023. Creatinine is 0.97 and it was 1.04 at admission to rehab. Serum bicarb is normal at 25. Objective Data Objective Data Vital Signs: Vital Signs Temp Pulse Resp BP Pulse Ox O2 Del Method O2 Flow Rate 97.5 F L 86 19 H 113/60 94 Room Air 2 12/18/23 06:09 12/18/23 07:54 12/18/23 06:09 12/18/23 07:54 12/18/23 06:09 12/18/23 08:36 12/16/23 16:14 FiO2 21 12/10/23 21:25 Oxygen Flow Rate (L/min) 2 Oxygen Delivery Method Room Air Weight: 277 lb 1.937 oz Body Mass Index (BMI) 43.4 Intake & Output: Intake and Output for Last 24 Hours 12/16/23 12/17/23 12/18/23 23:59 23:59 23:59 Intake Total 1500 / 1500 1260 / 1260 780 / 780 Output Total 1850 / 1850 1225 / 1225 500 / 500 Balance -350 / -350 35 / 35 280 / 280 Lab / Micro Data 12/11/23 06:47 12/18/23 04:15 Labs: Laboratory Results - last 24 hr 12/17/23 16:40: POC Glucose 127 H 12/18/23 04:15: Sodium 136, Potassium 4.0, Chloride 103, Carbon Dioxide 25.0, Anion Gap 8, BUN 25 H, Creatinine 0.97, Estim Creat Clear Calc 70.83, Est GFR (MDRD) Af Amer 95, Est GFR (MDRD) Non-Af 78, BUN/Creatinine Ratio 25.8 H, Glucose 135 H, Calcium 8.9 12/18/23 06:14: POC Glucose 144 H Physical Exam Const alert, oriented x3 and no apparent distress Constitutional Narrative: clearing his throat a good bit......just finished lunch General Appearance: cooperative HEENT moist oral mucous membranes Resp Resp Narrative: Diminished throughout but clear to auscultation. No conversational dyspnea Effort and Inspection: Negative for tachypneic Cardio regular rate, regular rhythm and no gallops GI normal to inspection, nondistended, normoactive bowel sounds, soft to palpation and non-tender Extremity Extremity Narrative: Unna boots were removed. I can now palpate his ankles. Less painful in the anterior graham areas BL. Dermatitis is improving. he has some petechiae due to venous HTN. Rare open areas now. No purulent DC Reapplied BL unna boots with Coban and AQUILINO wraps over the boot. Has some mild pitting in the distal posterior thighs. Skin Rashes: no rashes Assessment & Plan Assessment/Plan (1) Debility: (2) Acute ischemic cerebrovascular accident (CVA) involving posterior cerebral artery territory: (3) PFO (patent foramen ovale): (4) Vascular malformation: (5) Hypoxemia: (6) Morbid obesity with BMI of 40.0-44.9, adult: (7) Dyslipidemia: (8) History of hypertension: (9) Diabetes mellitus type 2, noninsulin dependent: PLAN: Well controlled with the addition of Glucophage to the drug regimen. (10) Chronic venous stasis: PLAN: with stasis dermatitis of the LE's BL. Needs better compression at home. Plan is to have him follow up with Dr. Casper in the wound care center post DC to be measured for Circaids and to follow the stasis dermatitis OR to get Jobst compression stockings at [facility] PLAN: Plan 1. Continue therapy 2. BL unna boots reapplied. 3. Needs an event monitor at DC and a sleep study Charges/Coding Visit Charges Inpatient E&M: 67939 Subs Hosp L1
[2023-12-18 16:23] LABS: Bedside Glucose 138 mg/dL (74-106)
[2023-12-18] MEDS: metFORMIN HCl 500 MG Tablet PO (17:03)
[2023-12-18 18:00] VITALS: BP 128/73; PULSE 98; RESP 20; TEMP 36.6; O2SAT 96
[2023-12-18] MEDS: Atorvastatin Calcium 40 MG Tablet PO (20:34)
[2023-12-19] MEDS: Acetaminophen 325 MG Tablet 650 MG PO ×4 (00:04→16:58)
[2023-12-19 04:00] VITALS: BMI 43.4
[2023-12-19] MEDS: Enoxaparin 40 MG/0.4 ML Syringe SC (05:54)
[2023-12-19 06:00] VITALS: BP 140/80; PULSE 84; RESP 19; TEMP 36.5; O2SAT 95
[2023-12-19 06:29] LABS: Bedside Glucose 110 mg/dL (74-106)
[2023-12-19] MEDS: Clopidogrel Bisulfate 75 MG Tablet PO (08:43)
[2023-12-19] MEDS: Glimepiride 2 MG Tablet PO (08:43)
[2023-12-19] MEDS: Lisinopril 5 MG Tablet PO ×2 (08:43→21:35)
[2023-12-19] MEDS: Aspirin E.C. 81 MG Tablet PO (08:43)
[2023-12-19] MEDS: metFORMIN HCl 500 MG Tablet 750 MG PO (08:43)
[2023-12-19] MEDS: Nystatin Powder 15gm Bottle 1 APPLIC TOPICAL ×2 (08:44→21:37)
[2023-12-19] MEDS: Menthol/Lanolin/Calamine/Znox 113 GM Tube 1 APPLIC TOPICAL ×2 (08:44→21:38)
[2023-12-19 14:10] VITALS: BMI 43.4
[2023-12-19] MEDS: metFORMIN HCl 500 MG Tablet PO (16:58)
[2023-12-19 17:18] LABS: Bedside Glucose 121 mg/dL (74-106)
[2023-12-19 18:00] VITALS: BP 127/78; PULSE 80; RESP 16; TEMP 36.6; O2SAT 96
[2023-12-19] MEDS: Atorvastatin Calcium 40 MG Tablet PO (21:35)
[2023-12-19 23:42] VITALS: BMI 43.4
[2023-12-20] MEDS: Enoxaparin 40 MG/0.4 ML Syringe SC (05:37)
[2023-12-20] MEDS: Acetaminophen 325 MG Tablet 650 MG PO ×3 (05:37→16:52)
[2023-12-20 05:57] VITALS: BP 145/80; PULSE 83; RESP 18; TEMP 36.5; O2SAT 92
[2023-12-20 06:13] LABS: Bedside Glucose 141 mg/dL (74-106)
[2023-12-20] MEDS: metFORMIN HCl 500 MG Tablet 750 MG PO (07:48)
[2023-12-20] MEDS: Lisinopril 5 MG Tablet PO ×2 (07:48→21:02)
[2023-12-20] MEDS: Aspirin E.C. 81 MG Tablet PO (07:48)
[2023-12-20] MEDS: Glimepiride 2 MG Tablet PO (07:48)
[2023-12-20] MEDS: Clopidogrel Bisulfate 75 MG Tablet PO (07:49)
[2023-12-20] MEDS: Menthol/Lanolin/Calamine/Znox 113 GM Tube 1 APPLIC TOPICAL ×2 (08:06→21:04)
[2023-12-20] MEDS: Nystatin Powder 15gm Bottle 1 APPLIC TOPICAL ×2 (08:07→21:04)
[2023-12-20 08:11] VITALS: O2SAT 92
[2023-12-20 08:54] VITALS: BMI 43.4
[2023-12-20] MEDS: metFORMIN HCl 500 MG Tablet PO (16:52)
[2023-12-20 17:10] LABS: Bedside Glucose 117 mg/dL (74-106)
[2023-12-20 18:00] VITALS: BP 145/71; PULSE 70; RESP 16; TEMP 36.8; O2SAT 96
[2023-12-20] MEDS: Atorvastatin Calcium 40 MG Tablet PO (21:02)
--- NOTE | 2023-12-20 22:00 | NURSING ---
2L n/c applied at HS.
[2023-12-21] MEDS: Acetaminophen 325 MG Tablet 650 MG PO ×4 (00:22→17:09)
[2023-12-21] MEDS: Enoxaparin 40 MG/0.4 ML Syringe SC (05:42)
[2023-12-21 05:43] VITALS: BP 113/71; PULSE 78; RESP 16; TEMP 36.6; O2SAT 95
[2023-12-21 05:50] VITALS: BMI 43.4
[2023-12-21 07:28] LABS: Bedside Glucose 104 mg/dL (74-106)
[2023-12-21 07:47] VITALS: O2SAT 92
[2023-12-21] MEDS: Lisinopril 5 MG Tablet PO ×2 (07:50→20:28)
[2023-12-21] MEDS: Aspirin E.C. 81 MG Tablet PO (07:50)
[2023-12-21] MEDS: Glimepiride 2 MG Tablet PO (07:50)
[2023-12-21] MEDS: Clopidogrel Bisulfate 75 MG Tablet PO (07:50)
[2023-12-21] MEDS: Menthol/Lanolin/Calamine/Znox 113 GM Tube 1 APPLIC TOPICAL ×2 (07:51→20:30)
[2023-12-21] MEDS: metFORMIN HCl 500 MG Tablet 750 MG PO (07:51)
[2023-12-21] MEDS: Nystatin Powder 15gm Bottle 1 APPLIC TOPICAL ×2 (07:52→20:30)
--- NOTE | 2023-12-21 09:39 | PN_ITS ---
Subjective Subjective Francis was seen on team rounds today. His family was present in the room. All questions were answered to their satisfaction. Afebrile VSS - Maintaining appropriate oxygen saturation on RA - oxygenation has improved from admission. No longer requiring Oxygen with exertion. Oral intake - FOOD good FLUIDS good The blood sugar record was reviewed. Blood sugars are well-controlled with no hypoglycemia. Discussed with nursing - no problems that need addressed. Still with urinary incontinence at times. Reviewed the THERAPY notes Medication list reviewed. Tolerating Glucophage with no diarrhea. Francis denies cephalgia, lightheadedness, shortness of breath at rest, chest pain, palpitations, abdominal pain, dysuria and calf tenderness. Objective Data Objective Data Vital Signs: Vital Signs Temp Pulse Resp BP Pulse Ox O2 Del Method O2 Flow Rate 97.9 F 78 16 113/71 92 Room Air 2 12/21/23 05:43 12/21/23 05:43 12/21/23 05:43 12/21/23 05:43 12/21/23 07:47 12/21/23 07:47 12/21/23 05:43 FiO2 21 12/10/23 21:25 Oxygen Flow Rate (L/min) 2 Oxygen Delivery Method Room Air Weight: 277 lb 1.937 oz Body Mass Index (BMI) 43.4 Intake & Output: Intake and Output for Last 24 Hours 12/19/23 12/20/23 12/21/23 23:59 23:59 23:59 Intake Total 1400 / 1400 1220 / 1220 520 / 520 Output Total 1485 / 1485 1200 / 1500 550 / 550 Balance -85 / -85 20 / -280 -30 / -30 Lab / Micro Data 12/11/23 06:47 12/18/23 04:15 Labs: Laboratory Results - last 24 hr 12/20/23 16:50: POC Glucose 117 H 12/21/23 07:10: POC Glucose 104 Physical Exam Const alert, oriented x3 and no apparent distress General Appearance: cooperative HEENT moist oral mucous membranes Resp Resp Narrative: Diminished throughout but clear to auscultation. No conversational dyspnea Effort and Inspection: Negative for tachypneic Cardio regular rate, regular rhythm and no gallops GI normal to inspection, nondistended, normoactive bowel sounds, soft to palpation and non-tender Skin Rashes: no rashes Psych cooperative and affect normal Appearance: appropriate Attitude: No agitated Assessment & Plan Assessment/Plan (1) Debility: (2) Acute ischemic cerebrovascular accident (CVA) involving posterior cerebral artery territory: (3) PFO (patent foramen ovale): (4) Vascular malformation: (5) Hypoxemia: PLAN: Abnormal overnight trending pulse ox. Will need oxygen supplementation at discharge for when he is sleeping. (6) Morbid obesity with BMI of 40.0-44.9, adult: PLAN: Weight loss recommended. (7) Dyslipidemia: (8) History of hypertension: (9) Diabetes mellitus type 2, noninsulin dependent: PLAN: Well controlled with the addition of Glucophage to the drug regimen. (10) Chronic venous stasis: (11) ANDREY (obstructive sleep apnea): PLAN: Plan 1. Continue therapy 2. Overnight split sleep study scheduled for Thursday night following discharge from rehab. Some 1 will need to be present from the family to assist patient while he is in the sleep lab. 3. Discussed oxygen therapy with the social human services assistants who will arrange 4. Plan on removing the Unna boots on Thursday to reexamine. 5. Recommended Jobst stockings at discharge which they can obtain at [facility] Charges/Coding Visit Charges Inpatient E&M: 57955 Subs Hosp L2
[2023-12-21 13:09] VITALS: BMI 43.4
--- NOTE | 2023-12-21 14:09 | CASEMGMT ---
Social Work IDT met with patient, , dtr and JEREMY for Team meeting. Discussed patient's progress in PT/OT/ST/SN. Pt is progressing well and family attended therapy training today. Family is agreeable to set DC date. Pt needs sleep study at [facility]. [facility] offered skilled HHC, however, pt has no insurance and family prefer to continue with HEPs. SW educated to contacting PCP for HHC order if family notices decline in pt. Family expressed understanding. [facility] and family prefers [facility], to be contacted for pricing. [facility] spoke with sleep lab for scheduling and next available is 12/24. [facility] spoke with family and at [facility] - all agreeable and son or dtr can stay with pt for assistance at sleep study. [facility] sent referral to [facility] for overnight O2. Plan: DC home with family 12/24, overnight O2 MARIA ESTHER Calderon
[2023-12-21] MEDS: metFORMIN HCl 500 MG Tablet PO (17:09)
[2023-12-21 17:15] LABS: Bedside Glucose 130 mg/dL (74-106)
[2023-12-21 18:00] VITALS: BP 126/74; PULSE 80; RESP 18; TEMP 36.4; O2SAT 96
[2023-12-21] MEDS: Atorvastatin Calcium 40 MG Tablet PO (20:28)
[2023-12-21 22:00] VITALS: BMI 43.4
[2023-12-22] MEDS: Acetaminophen 325 MG Tablet 650 MG PO ×5 (00:26→23:50)
[2023-12-22 06:00] VITALS: BP 126/75; PULSE 75; RESP 17; TEMP 36.3; O2SAT 95
[2023-12-22] MEDS: Enoxaparin 40 MG/0.4 ML Syringe SC (06:15)
[2023-12-22 07:32] LABS: Bedside Glucose 103 mg/dL (74-106)
[2023-12-22] MEDS: Aspirin E.C. 81 MG Tablet PO (07:57)
[2023-12-22] MEDS: metFORMIN HCl 500 MG Tablet 750 MG PO (07:57)
[2023-12-22] MEDS: Lisinopril 5 MG Tablet PO ×2 (07:57→20:25)
[2023-12-22] MEDS: Glimepiride 2 MG Tablet PO (07:57)
[2023-12-22] MEDS: Menthol/Lanolin/Calamine/Znox 113 GM Tube 1 APPLIC TOPICAL ×2 (07:58→20:21)
[2023-12-22] MEDS: Nystatin Powder 15gm Bottle 1 APPLIC TOPICAL ×2 (07:59→20:21)
[2023-12-22] MEDS: Clopidogrel Bisulfate 75 MG Tablet PO (07:59)
[2023-12-22] MEDS: Senna/Docusate Sodium 1 Tablet 2 TABLET PO (08:44)
[2023-12-22 12:43] VITALS: BMI 43.4
[2023-12-22] MEDS: metFORMIN HCl 500 MG Tablet PO (16:29)
[2023-12-22 16:56] LABS: Bedside Glucose 148 mg/dL (74-106)
[2023-12-22 16:59] VITALS: BP 126/72; PULSE 86; RESP 18; TEMP 36.6; O2SAT 95
[2023-12-22] MEDS: Atorvastatin Calcium 40 MG Tablet PO (20:20)
[2023-12-22 20:31] VITALS: BMI 43.4
[2023-12-22 20:51] LABS: Bedside Glucose 113 mg/dL (74-106)
[2023-12-22 22:00] VITALS: PULSE 80; RESP 15
[2023-12-23] MEDS: Enoxaparin 40 MG/0.4 ML Syringe SC (04:50)
[2023-12-23] MEDS: Acetaminophen 325 MG Tablet 650 MG PO ×2 (04:50→11:55)
[2023-12-23 05:11] VITALS: BP 106/60; PULSE 72; RESP 16; TEMP 36.4; O2SAT 95
[2023-12-23 06:00] VITALS: BMI 43.7
[2023-12-23 07:03] LABS: Bedside Glucose 115 mg/dL (74-106)
[2023-12-23 07:11] VITALS: O2SAT 92
[2023-12-23] MEDS: Aspirin E.C. 81 MG Tablet PO (07:56)
[2023-12-23] MEDS: Glimepiride 2 MG Tablet PO (07:56)
[2023-12-23] MEDS: Lisinopril 5 MG Tablet PO ×2 (07:56→20:55)
[2023-12-23] MEDS: Clopidogrel Bisulfate 75 MG Tablet PO (07:56)
[2023-12-23] MEDS: metFORMIN HCl 500 MG Tablet 750 MG PO (07:56)
[2023-12-23] MEDS: Nystatin Powder 15gm Bottle 1 APPLIC TOPICAL ×2 (07:59→20:56)
[2023-12-23] MEDS: Menthol/Lanolin/Calamine/Znox 113 GM Tube 1 APPLIC TOPICAL ×2 (07:59→20:55)
--- NOTE | 2023-12-23 10:28 | PCM.PROGNOTE ---
Subjective Subjective Afebrile VSS -blood pressure is well-controlled Maintaining appropriate oxygen saturation on RA Oral intake - FOOD good FLUIDS adequate weight is stabe Discussed with nursing - no problems that need addressed Reviewed the THERAPY notes Medication list reviewed. Francis has no complaints today. the pain in the anterior distal legs is much improved and he only c/o pain in the calves if some squeezes them. He is sleeping well and has a good appetite. He is always pleasant and cooperative. Denies CP, SOB at rest. Tells me that he is not getting SOB with exertion like he was at admission. Exercise tolerance is improving. Denies dysuria. Continues to be incontinent of urine but, it is infrequent now. No incontinence documented since the . Still coughing after and with eating but, able to expel retaind food from the airway without aspiration. Objective Data Objective Data Vital Signs: Vital Signs Temp Pulse Resp BP Pulse Ox O2 Del Method O2 Flow Rate 97.6 F L 72 16 106/60 92 Room Air 2 12/23/23 05:11 12/23/23 05:11 12/23/23 05:11 12/23/23 05:11 12/23/23 07:11 12/23/23 07:11 12/23/23 05:11 FiO2 21 12/10/23 21:25 Oxygen Flow Rate (L/min) 2 Oxygen Delivery Method Room Air Weight: 278 lb 10.629 oz Body Mass Index (BMI) 43.7 Intake & Output: Intake and Output for Last 24 Hours 12/21/23 12/22/23 12/23/23 23:59 23:59 23:59 Intake Total 1080 / 1080 1664 / 1664 520 / 520 Output Total 1050 / 1050 975 / 975 875 / 875 Balance 689 / 689 -355 / -355 Lab / Micro Data 12/11/23 06:47 12/18/23 04:15 Labs: Laboratory Results - last 24 hr 12/22/23 16:38: POC Glucose 148 H 12/22/23 20:29: POC Glucose 113 H 12/23/23 06:43: POC Glucose 115 H Physical Exam Const alert and no apparent distress General Appearance: cooperative HEENT moist oral mucous membranes Resp clear to auscultation bilaterally Effort and Inspection: Negative for tachypneic Auscultation: diminished lung sounds Cardio regular rate, regular rhythm and no gallops Cardio Narrative: No ectopy GI normal to inspection, nondistended, normoactive bowel sounds, soft to palpation and non-tender GI Narrative: No guarding with palpation. Extremity Extremity Narrative: The unna boots were removed. only has a trace of swelling at the ankles now. Stasis dermatitis is looking much better. NO openings in the skin. NO dry flakey skin. Purplish discoloration of the anterior LE's due to venous insufficiency. Skin General Skin Exam: no breakdown Rashes: no rashes Psych cooperative and affect normal Assessment & Plan Assessment/Plan (1) Debility: (2) Acute ischemic cerebrovascular accident (CVA) involving posterior cerebral artery territory: (3) Hypoxemia: PLAN: Abnormal overnight trending pulse ox. Will need oxygen supplementation at discharge for when he is sleeping. (4) Diabetes mellitus type 2, noninsulin dependent: PLAN: Well controlled with the addition of Glucophage to the drug regimen. (5) Chronic venous stasis: (6) ANDREY (obstructive sleep apnea): PLAN: Plan 1. Continue therapy - plan DC to the sleep lab on Thursday night and home Thursday AM 2. DC unna boots. Mateusz wraps reapplied. Will show his daughter how to correctly apply the unna boots prior to DC. Will order Jobst stockings from [facility]. 3. Continue with leg elevation with sitting after DC from rehab Charges/Coding Visit Charges Inpatient E&M: 17548 [facility] Hosp L1
[2023-12-23 15:19] VITALS: BMI 43.7
[2023-12-23 16:33] LABS: Bedside Glucose 121 mg/dL (74-106)
[2023-12-23] MEDS: metFORMIN HCl 500 MG Tablet PO (16:49)
[2023-12-23 19:00] VITALS: BP 120/74; PULSE 90; RESP 18; TEMP 36.7; O2SAT 93
[2023-12-23] MEDS: Atorvastatin Calcium 40 MG Tablet PO (20:55)
[2023-12-23 20:59] VITALS: BP 110/75; PULSE 90
[2023-12-24 01:19] VITALS: BMI 43.7
[2023-12-24] MEDS: Acetaminophen 325 MG Tablet 650 MG PO (05:28)
[2023-12-24] MEDS: Enoxaparin 40 MG/0.4 ML Syringe SC (05:29)
[2023-12-24 06:00] VITALS: BP 109/71; PULSE 74; RESP 16; TEMP 36.3; O2SAT 95
[2023-12-24 07:06] LABS: Bedside Glucose 102 mg/dL (74-106)
[2023-12-24] MEDS: Clopidogrel Bisulfate 75 MG Tablet PO (07:54)
[2023-12-24] MEDS: Aspirin E.C. 81 MG Tablet PO (07:54)
[2023-12-24] MEDS: metFORMIN HCl 500 MG Tablet 750 MG PO (07:55)
[2023-12-24] MEDS: Glimepiride 2 MG Tablet PO (07:55)
[2023-12-24] MEDS: Lisinopril 5 MG Tablet PO ×2 (07:55→21:45)
[2023-12-24] MEDS: Nystatin Powder 15gm Bottle 1 APPLIC TOPICAL ×2 (07:57→21:45)
[2023-12-24] MEDS: Menthol/Lanolin/Calamine/Znox 113 GM Tube 1 APPLIC TOPICAL ×2 (07:57→21:45)
[2023-12-24 16:33] VITALS: BMI 43.7
[2023-12-24] MEDS: metFORMIN HCl 500 MG Tablet PO (16:51)
[2023-12-24 17:06] LABS: Bedside Glucose 115 mg/dL (74-106)
[2023-12-24 17:19] VITALS: BP 109/64; PULSE 113; RESP 18; TEMP 36.8; O2SAT 96
[2023-12-24 21:40] VITALS: BP 110/74; PULSE 91
[2023-12-24] MEDS: Atorvastatin Calcium 40 MG Tablet PO (21:45)
[2023-12-25 01:04] VITALS: BMI 43.7
[2023-12-25 06:00] VITALS: BP 120/75; PULSE 89; RESP 16; TEMP 36.6; O2SAT 95
[2023-12-25] MEDS: Enoxaparin 40 MG/0.4 ML Syringe SC (06:13)
[2023-12-25 07:36] LABS: Bedside Glucose 118 mg/dL (74-106)
[2023-12-25 08:10] VITALS: BP 109/75
[2023-12-25] MEDS: Lisinopril 5 MG Tablet PO ×2 (08:59→19:54)
[2023-12-25] MEDS: Aspirin E.C. 81 MG Tablet PO (08:59)
[2023-12-25] MEDS: Clopidogrel Bisulfate 75 MG Tablet PO (08:59)
[2023-12-25] MEDS: metFORMIN HCl 500 MG Tablet 750 MG PO (08:59)
[2023-12-25] MEDS: Glimepiride 2 MG Tablet PO (08:59)
[2023-12-25 10:08] VITALS: BMI 43.7
[2023-12-25] MEDS: Acetaminophen 325 MG Tablet 650 MG PO ×2 (12:32→16:51)
--- NOTE | 2023-12-25 16:39 | DCINST_ITS ---
Discharge Instructions Diet Discharge Diet: - (1800-calorie carb consistent diet. Low-salt and low-fat.) Activity Discharge Activity: May Not Drive, May Shower and Use Walker Weight Bearing Status: Full weight bearing Keep extremity elevated above heart level: Legs Dressing / Incision Call your doctor if you observe: Fever of 101 or Higher, Inability to urinate, Shortness of breath, Dizziness, Fainting spells, Chest pain, Increased palpitations (irregular heartbeat), Calf discomfort, Uncontrolled pain and - (STROKE symptoms: facial droop, slurred speech, inability to get words out, weakness on 1 side of the body and not the other, numbness on 1 side of the body and not the other, inability to maintain your balance sitting or standing, vertigo. ) Follow Up Care Please Follow Up With: Preston Zavala DO When: within 2 weeks after DC from the hospital. You will also need to follow up with Dr. Andria Carlson who is a neurologist who takes care of patients with strokes. Test Results: Test results from this visit will be discussed in further detail at your follow- up appointment, if applicable. Pending Tests Upon Discharge: results of sleep study which will be done on 12/25/23 Discharge Plan Admission Admit Date/Time: 12/10/23 14:40 Primary Reason for Your Visit: Post stroke debility Attending Provider: Mitzy Levy Instructions Patient Instructions: CVI, ED Sleep Apnea, Obstructive Additional Instructions / Restrictions: 1. Your BP is well controlled. The blood sugars look excellent on the diet you have been eating in the hospital. Your cholesterol is well-controlled. these things are all important in preventing strokes in the future. Continue taking your medications as prescribed and follow a good diet. Get some exercise everyday and do not sit for longer than 1-2 hours without getting up and taking a walk. 2. Your legs swell because you have chronic venous insufficiency. I have given you a handout to read about this. The swelling in the legs is much better since you had the boots on your legs. There are no more openings in the skin. It is VERY IMPORTANT to control the selling to prevent openings in the skin and cellulitis. I have written you a prescription for Jobst stockings. You will need to be measured for these to get the proper size. They can do this for you at [facility] in [place]. you can call to get an appt. there phone number is [phone]. To prevent swelling of the legs you must keep them elevated when you are sitting in a chair. You will continue to use the MATEUSZ wraps on your legs until you receive the Jobst stockings. Put the Mateusz wrap's on as soon as you get out of bed in the morning and do not take them often to you go to bed at night. When you go to bed at night moisturize your legs with a good moisturizer... Eucerin Intensive repair works very well. This will prevent dry cracking skin that can let bacteria in and cause cellulitis. 3. I am pretty sure that you have sleep apnea. IF you do it is VERY IMPORTANT to treat it with CPAP. Untreated sleep apnea causes a problem with the rhythm of the heart called atrial fibrillation, also called A-fib. A-fib increases risk for strokes. When the oxygen in your blood drops because you quit breathing it can cause problems with the heart. After the sleep study you will have follow up to discuss the results and prescribe a machine if needed. 4. You have not had AFIB while u have been on rehab but, we have been giving you oxygen when sleeping so that the oxygen is not dropping when you sleep. We are prescribing oxygen at home for you and you should wear oxygen ANYTIME you are sleeping. 5. The hospital will send you a heart monitor that you will wear for 30 days and then return. After the monitor is interpreted you will see a neon pumper to discuss the results. 6. If you or your family have any questions after you leave rehab please do not hesitate to call me. Office: [phone] Cell phone: [phone] Discharge Orders/Prescriptions Prescriptions: New metformin 500 mg Tablet 500 mg PO DINNER Qty: 75 0RF Rx Instructions: 1 and 1/2 tabs with breakfast and 1 tab with supper. lisinopril 5 mg Tablet 5 mg PO BID Qty: 60 0RF Continued atorvastatin 10 mg tablet 40 mg PO QHS aspirin 81 mg tablet,delayed release (DR/EC) 81 mg PO DAILY clopidogrel 75 mg tablet 75 mg PO DAILY Qty: 30 0RF glimepiride 2 mg tablet 2 mg PO DAILY Qty: 30 0RF Changed acetaminophen [Aphen] 325 mg tablet 650 mg PO Q6H PRN (Reason: pain or fever) Qty: 1 0RF Discontinued glimepiride 1 mg tablet 1.5 mg PO 1700 lisinopril 5 mg tablet 5 mg PO 1700 ammonium lactate [Skin Treatment] 12 % lotion 1 applic topical 0600 miconazole nitrate [Antifungal (miconazole)] 2 % powder 1 applic topical BID Referrals / Follow Up: Randy Carlson-Neurology [Other] - 01/26/24 2:20 pm Disposition Disposition (needs filled in before D/C Order can be placed): Home, Self Care
--- NOTE | 2023-12-25 16:39 | PCM.DC.SUM ---
Providers Date of Admission: 12/10/23 Date of Discharge: 12/25/23 Primary Care Physician: Dr. 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 MRI showed 2 areas of discrete infarction in the vertebrobasilar territory (left cerebellar hemisphere and left mesial thalamic areas). The fact that there are 2 different areas suggest possible emboli. WILFRIDO showed a moderate-sized PFO with a hypermobile atrial septum. The left ventricle was of normal size with mildly increased wall thickness. The EF was estimated at 60% and there was no wall motion abnormality. There were no thrombi in the left atrial appendage. Ultrasound of the lower extremity showed no evidence of DVT. Cardiology felt the risk of inserting a Watchman device at his age with his comorbidities likely exceeded the benefit. A 30-day event monitor was recommended at discharge and an order was put in prior to his discharge from rehab. Neurology recommended 28 days of dual antiplatelet agents and then discontinuing clopidogrel and resuming daily aspirin 325 mg. 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 They offered a cerebral angiogram but patient and family refused at this time but may consider at a later date. (3) Hypoxemia: Status: Acute Code(s): R09.02 - Hypoxemia Plan: Abnormal overnight trending pulse ox. Home oxygen was ordered for Meliza prior to discharge from rehab. He is to have a sleep study on the night of discharge from rehab. (4) Diabetes mellitus type 2, noninsulin dependent: Status: Chronic Code(s): E11.9 - Type 2 diabetes mellitus without complications Plan: Hemoglobin A1c at the time of presentation with the stroke was elevated at 8.4. He came to us on 2 mg of Amaryl in the a.m. and 1.5 mg in the p.m. but blood sugars were not adequately controlled. He had previously been on Glucophage and this was restarted. Blood sugars are well-controlled at discharge on Amaryl 2 mg daily in the a.m., Glucophage 750 mg in the a.m. and Glucophage 500 mg with supper. He has been on an 1800-calorie diet with consistent carbohydrates. (5) Chronic venous stasis: Status: Chronic Code(s): I87.8 - Other specified disorders of veins Plan: Stasis dermatitis was present at the time of admission to rehab and there were openings in the skin. He had 4+ edema of his lower extremities. Unna boots were applied for compression and at the time of discharge the edema is much improved and there are no openings in the skin. He has been instructed to elevate his legs when he is seated and to apply Mateusz wraps in the a.m. as soon as he gets up and not take them off until he goes to sleep at night. He was given a prescription for Jobst stockings with 20 to 30 mmHg compression. He was instructed to moisturize his legs at bedtime when the Mateusz wrap's are removed. (6) ANDREY (obstructive sleep apnea): Status: Suspected Code(s): G47.33 - Obstructive sleep apnea (adult) (pediatric) Plan: Had an abnormal overnight trending pulse ox with desaturation events. An overnight sleep study was scheduled for him on the evening of discharge from acute rehab. He will follow-up with pulmonary medicine following this study to discuss the results and prescribe PAP therapy if needed. (7) UTI (urinary tract infection): Status: Resolved Code(s): N39.0 - Urinary tract infection, site not specified Qualifiers: Urinary tract infection type: acute cystitis Hematuria presence: without hematuria Qualified Code(s): N30.00 - Acute cystitis without hematuria Plan: This was present at the time he presented to rehab and he was already on antibiotics from the previous institution. (8) Morbid obesity with BMI of 40.0-44.9, adult: Status: Chronic Code(s): E66.01 - Morbid (severe) obesity due to excess calories; Z68.41 - Body mass index [BMI] 40.0-44.9, adult Plan: Weight loss counseling was given. (9) Dyslipidemia: Status: Chronic Code(s): E78.5 - Hyperlipidemia, unspecified Plan: At the time of the stroke his LDL was 56 and the HDL was 43. Triglycerides were normal at 119. (10) History of hypertension: Status: Chronic Code(s): Z86.79 - Personal history of other diseases of the circulatory system Plan: Blood pressures are within goal of less than 130/80 at discharge from rehab. No hypotension and no complaints of lightheadedness. (11) PFO (patent foramen ovale): Status: Chronic Code(s): Q21.12 - Patent foramen ovale Plan: Was seen by cardiology at [facility] and the healthcare representative felt that the risk of inserting a Watchman device exceeded the benefit in this 83-year-old male with multiple comorbidities. (12) Vascular malformation: Status: Chronic Code(s): Q27.9 - Congenital malformation of peripheral vascular system, unspecified Plan 1. Discharge patient to the sleep lab for a split study. Will follow-up with pulmonary medicine to discuss the results of the sleep study and prescribed PAP therapy if needed. Home oxygen was arranged by the manager social responsibility and he is to wear it anytime he is sleeping. 2. Follow-up has been arranged with Dr. Randy Carlson from neurology. 3. He will call Dr. Gandhi's office and schedule an appointment to be seen within the next 2 weeks. 4. A 30-day event monitor was ordered at the time of discharge from rehab. It will be sent to him in the mail. Medications at Discharge Home Medications aspirin 81 mg tablet,delayed release 81 mg PO DAILY Heart health 12/10/23 atorvastatin 10 mg tablet 40 mg PO QHS Cholestrol 12/10/23 acetaminophen 325 mg tablet (Aphen) 650 mg (2 x 325 mg) PO Q6H PRN pain or fever #1 TAB 12/25/23 clopidogrel 75 mg tablet 75 mg PO DAILY Cholestrol #30 tabs 12/25/23 glimepiride 2 mg tablet 2 mg PO DAILY Blood sugar #30 tabs 12/25/23 lisinopril 5 mg tablet 5 mg PO BID #60 tabs 12/25/23 metformin 500 mg tablet 500 mg PO DINNER #75 tabs 12/25/23 Hospital Course Operations None Procedures Modified Barium Swallow and - (Overnight trending pulse ox. Abnormal with periods of hypoxemia and desaturation events. Scheduled for an overnight split sleep study on the night of discharge from rehab.) Summary of Care Provided Minutes Spent on Discharge: 40 Hospital Course: MELIZA TAYLOR, is a 83 YO M with a PMH of ischemic CVA in 2008, morbid obesity, venous insufficiency, DM II (not adequately controlled), Dyslipidemia, suspected sleep apnea, suspected BPH (recent UTI), oropharyngeal dysphagia with chronic cough (no hx of PNA) and HTN who presented to the ED at [facility] on 12/06/2023 complaining of dizziness, slurred speech and difficulty walking when awakening that morning. He was diagnosed with a urinary tract infection and transferred to [facility] for possible CVA. NIHSS at [facility] at arrival was 1 for mild-moderate dysarthria. Significant lab included an elevated hemoglobin A1c at 8.4. The lipid panel showed triglycerides of 119, an LDL of 56 and an HDL of 43. Hemoglobin was 15.6. Sodium was mildly decreased at 134 and the BUN was 27 with a creatinine of 0.88. TSH was normal. Blood cultures had no growth. The urine culture had no growth however the patient had Rocephin prior to being transferred to [facility]. An MRI of the brain demonstrated 2 areas of discrete infarction in the vertebrobasilar territory (left cerebellar hemisphere and left mesial thalamic areas) suggesting possible embolic mechanism. Transthoracic echocardiogram showed a normal-sized left ventricle with mildly increased wall thickness. EF was estimated at 60% and there was normal wall motion. The right ventricle was mildly dilated with normal systolic function. The left atrium was smaller than normal. No interatrial shunt was observed. There were no significant valvular abnormalities, He also had a WILFRIDO that showed evidence of a moderate-sized PFO and a hypermobile atrial septum. There were no thrombi in the left atrial appendage. US of the LE's showed no DVT. The risk of placing a Watchman device at his age likely exceeds the benefit per the healthcare representative. They did recommend a 30-day event monitor at discharge. Neurology recommended dual antiplatelet therapy for 28 days and they resume ASA 325 mg daily. 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 Endovascular neurology was consulted. Endovascular felt the finding on CTA was likely an incidental finding due to R PICA AVM or aneurysm. They offered a cerebral angiogram to further characterize the vascular lesion and its contribution to cerebral blood flow. The pt and family declined an angiogram at this time but, may pursue as an outpatient. If they decide to have the angiogram it can be done at [facility] as an OP. He will follow up with Dr. Pugh at [facility] in 6 months. They were instructed to go to an ED immediately if any stroke sx going forward. While at [facility] he was seen by PT/OT/ST and acute inpt rehab was recommended at [place]. He was transferred to the acute inpt rehab unit at [facility] on 12/10/23 for 3 hours of therapy daily to restore function/independence at or near his level prior to the most recent stroke. At the time of admission to rehab the BP was not consistently at goal which is less than 130/80. Lisinopril was increased to 5 mg BID and the BP is at goal at the time of discharge with no hypotension and no complaints of lightheadedness. Creatinine remained stable with the increase in the lisinopril. Potassium remains within normal limits. Blood sugars were over 180 at times. He had been taking Glucophage prior to the stroke and had no adverse side effects. I presume the Glucophage was held because he had a CTA. After 5 to 7 days on rehab we discontinued the 5 PM dose of Amaryl 1.5 mg and continue 2 mg in the AM. Glucophage 500 mg twice daily was added to the drug regimen but blood sugars were sometimes still greater than 180. The a.m. dose was increased to 750 mg and at the time of discharge the blood sugars are well-controlled with no hypoglycemia no blood sugars greater than 180. He has been consuming an 1800-calorie carb consistent diet while on rehab. Diet instruction was given to the patient and his family by the dietitian. He had 4+ pitting edema of his legs at presentation to rehab. He did not tolerate LIZ hose and they were very difficult to get on him. We used Mateusz wraps but this did not adequately control edema and so he had bilateral Unna boots placed. At the time of discharge there are no openings in the skin of his lower extremities and he has only trace edema at the ankle. He has been compliant with elevation of his legs when seated in a chair. We have been applying moisturizer once a day at bedtime to prevent dry flaky skin. He was given a prescription at discharge to obtain Jobst calf compression stockings with Velcro and 20 to 30 mmHg compression. They were referred to [facility] to be measured. Meliza did very well in therapy. At the time of discharge he is supervision/set up for eating and grooming. He requires minimal assistance with tub/shower transfer and bathing. He requires moderate assistance with upper body dressing and maximum assistance with lower body dressing, toileting and toilet transfer. He is able to ascend/descend three 4 inch steps and two 6 inch steps with 2 handrails at contact-guard assist/min assist. Patient's family stated he will not need to use steps at home. He can ambulate 110 feet with a rollator walker at standby assist/contact-guard assist. He can go from sitting to standing at standby assist/contact-guard assist and he is able to stand pivot at standby assist/contact-guard assist. He has a lift chair at home and he sleeps in the lift chair. He will follow up with his PCP, Dr. Preston Gandhi, within 2 weeks postdischarge from rehab. He has an appointment to follow-up with Dr. Randy Carlson from neurology in January. A 30-day event monitor was prescribed and it will be mailed to him. He will follow-up with cardiology following removal and interpretation of the event monitor to discuss the results. He will have a follow-up with pulmonary medicine after the conclusion of the sleep study to discuss the results and prescribed PAP therapy if needed. 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 Physical Exam Const alert and no apparent distress General Appearance: cooperative HEENT moist oral mucous membranes HEENT Narrative: No evidence of thrush. He coughs frequently after eating and with drinking but he is able to clear secretions and has not had a problem with pneumonia since his first stroke in 2008. Eyes PERRL and EOMs intact bilaterally Eyes Narrative: No scleral icterus, no conjunctival injection, no discharge from the eyes and no mattering of the eyelashes. Patient denies any visual deficits. Neck Neck Narrative: His neck is short and thick get it is difficult to auscultate for carotid bruits. I was unable to detect a bruit and he had no significant occlusion of the carotids on CTA of the neck done as part of the stroke workup. Resp clear to auscultation bilaterally Resp Narrative: No conversational dyspnea. Effort and Inspection: Negative for tachypneic or respiratory distress Auscultation: diminished lung sounds Cardio regular rate, regular rhythm, S1 normal heart sound, S2 normal heart sound, no murmurs and no gallops Cardio Narrative: No ectopy. He has been in normal sinus rhythm every time I have examined him while on rehab. GI normal to inspection, nondistended, normoactive bowel sounds, soft to palpation and non-tender GI Narrative: No guarding with palpation. Extremity Extremity Narrative: Mild swelling of the ankles and distal LE's. No openings in the skin. He has hyperpigmentation of the anterior LE's BL and there is a purplish discoloration of the skin over the LE's due to venous HTN. Sry flakey skin has resolved with moisturizer once daily at Bedtime. General Extremity: edema; Negative for clubbing Skin General Skin Exam: no breakdown Rashes: no rashes Neuro Neuro Narrative: Speech is fluent with good articulation at the time of DC from rehab. Voice is projecting better. Speech has improved significantly since admission. He has a trace of facial droop ( I suspect this has been present since his first CVA in 2008). Cranial nerves II through XII are otherwise grossly intact. He is unable to flex his knees significantly and unable to complete the heel graham test for ataxia. The finger-nose test was normal bilaterally. He has generalized weakness but no focal weakness/extremity drift at the time of discharge. He still has oropharyngeal dysphagia but is able to clear his secretions with a cough. Cough is frequent and occurs after eating and drinking. NIHSS score at the time of discharge from rehab is 1 for mild dysarthria. Modified Renee score is still a 4 for moderate/severe disability at the time of discharge. Psych cooperative and affect normal Psych Narrative: Very pleasant and polite. Makes good eye contact when he is speaking with me. Always cooperative with therapist when they want him to do something. Appearance: appropriate Attitude: No agitated Activity / Motor Behavior: Negative for restless Weight / BMI Weight Weight: 278 lb 10.629 oz Body Mass Index (BMI) 43.7 ABG / Lab / Microbiology Data 12/11/23 06:47 12/18/23 04:15 Laboratory: Laboratory Results - last 24 hr 12/24/23 16:43: POC Glucose 115 H 12/25/23 07:18: POC Glucose 118 H Meaningful Use Info Meaningful Use Meaningful Use Diagnoses (Choose all that apply): Ischemic CVA CVA Therapy Assessed for PT,OT and/or ST?: Yes Ischemic Stroke Antithrombotic order at d/c?: Yes Dx of Atrial fib/flutter?: No Reason anticoagulant not ordered: Procedure not Indicated Statin Dosing Therapy Reference: STATIN DOSE THERAPY REFERENCE: * Patients > 75 years receive moderate or high dose statin therapy. * Patients 75 years or YOUNGER should receive HIGH intensity statin dose unless contraindicated. You will be required to document reason for non-treatment if statin daily dose does not meet guidelines. HIGH DOSE STATIN THERAPY DAILY Atorvastatin > than or = to 40 mg Rosuvastatin > than or = to 20 mg Amlodipine + Atorvastatin > than or = to 2.5/40 mg Ezetimibe + Simvastatin 10/80 mg Simvastatin 80mg Statins at discharge?: Yes Primary Dx Acute Ischemic CVA?: Yes IV thrombolytic ordered during stay?: No Reason IV thrombolytic not ordered: Procedure not Indicated Discharge Plan Admission Admit Date/Time: 12/10/23 14:40 Primary Reason for Your Visit: Post stroke debility Attending Provider: Mitzy Levy Instructions Patient Instructions: CVI, ED Sleep Apnea, Obstructive Additional Instructions / Restrictions: 1. Your BP is well controlled. The blood sugars look excellent on the diet you have been eating in the hospital. Your cholesterol is well-controlled. these things are all important in preventing strokes in the future. Continue taking your medications as prescribed and follow a good diet. Get some exercise everyday and do not sit for longer than 1-2 hours without getting up and taking a walk. 2. Your legs swell because you have chronic venous insufficiency. I have given you a handout to read about this. The swelling in the legs is much better since you had the boots on your legs. There are no more openings in the skin. It is VERY IMPORTANT to control the selling to prevent openings in the skin and cellulitis. I have written you a prescription for Jobst stockings. You will need to be measured for these to get the proper size. They can do this for you at [facility] in [place]. you can call to get an appt. there phone number is [phone]. To prevent swelling of the legs you must keep them elevated when you are sitting in a chair. You will continue to use the MATEUSZ wraps on your legs until you receive the Jobst stockings. Put the Mateusz wrap's on as soon as you get out of bed in the morning and do not take them often to you go to bed at night. When you go to bed at night moisturize your legs with a good moisturizer... Eucerin Intensive repair works very well. This will prevent dry cracking skin that can let bacteria in and cause cellulitis. 3. I am pretty sure that you have sleep apnea. IF you do it is VERY IMPORTANT to treat it with CPAP. Untreated sleep apnea causes a problem with the rhythm of the heart called atrial fibrillation, also called A-fib. A-fib increases risk for strokes. When the oxygen in your blood drops because you quit breathing it can cause problems with the heart. After the sleep study you will have follow up to discuss the results and prescribe a machine if needed. 4. You have not had AFIB while u have been on rehab but, we have been giving you oxygen when sleeping so that the oxygen is not dropping when you sleep. We are prescribing oxygen at home for you and you should wear oxygen ANYTIME you are sleeping. 5. The hospital will send you a heart monitor that you will wear for 30 days and then return. After the monitor is interpreted you will see a healthcare representative to discuss the results. 6. If you or your family have any questions after you leave rehab please do not hesitate to call me. Office: [phone] Cell phone: [phone] Discharge Orders/Prescriptions Prescriptions: New metformin 500 mg Tablet 500 mg PO DINNER Qty: 75 0RF Rx Instructions: 1 and 1/2 tabs with breakfast and 1 tab with supper. lisinopril 5 mg Tablet 5 mg PO BID Qty: 60 0RF Continued atorvastatin 10 mg tablet 40 mg PO QHS aspirin 81 mg tablet,delayed release (DR/EC) 81 mg PO DAILY clopidogrel 75 mg tablet 75 mg PO DAILY Qty: 30 0RF glimepiride 2 mg tablet 2 mg PO DAILY Qty: 30 0RF Changed acetaminophen [Aphen] 325 mg tablet 650 mg PO Q6H PRN (Reason: pain or fever) Qty: 1 0RF Discontinued glimepiride 1 mg tablet 1.5 mg PO 1700 lisinopril 5 mg tablet 5 mg PO 1700 ammonium lactate [Skin Treatment] 12 % lotion 1 applic topical 0600 miconazole nitrate [Antifungal (miconazole)] 2 % powder 1 applic topical BID Referrals / Follow Up: Randy Carlson-Neurology [Other] - 01/26/24 2:20 pm preston gandhi [Other] (patient to make appointment) Disposition Disposition (needs filled in before D/C Order can be placed): Home, Self Care Charges/Coding Visit Charges Inpatient E&M: 66287 Disch Hosp >30min
[2023-12-25] MEDS: metFORMIN HCl 500 MG Tablet PO (16:51)
[2023-12-25 17:10] LABS: Bedside Glucose 73 mg/dL (74-106)
[2023-12-25 18:00] VITALS: BP 108/72; PULSE 82; RESP 16; TEMP 36.8; O2SAT 96
--- NOTE | 2023-12-25 18:57 | NURSING ---
Discharge instructions provided to and patient and verbalized understanding.
[2023-12-25] MEDS: Atorvastatin Calcium 40 MG Tablet PO (19:55)
== END 2023-12-25 20:05 | disposition home or self-care (01) | DRG 57 ==
PROVIDERS: Admitting Provider Internal Medicine; Referring Provider Internal Medicine; Visit Provider Internal Medicine
DX: I69.322 Dysarthria following cerebral infarction (principal); Z68.41 Body mass index [BMI] 40.0-44.9, adult; Q21.12 Patent foramen ovale; N30.00 Acute cystitis without hematuria; L89.159 Pressure ulcer of sacral region, unspecified stage; E11.59 Type 2 diabetes mellitus with other circulatory complications; I10 Essential (primary) hypertension; I69.392 Facial weakness following cerebral infarction; E66.01 Morbid (severe) obesity due to excess calories; E78.5 Hyperlipidemia, unspecified; I87.2 Venous insufficiency (chronic) (peripheral); G47.33 Obstructive sleep apnea (adult) (pediatric); Q27.9 Congenital malformation of peripheral vascular system, unspecified; I69.321 Dysphasia following cerebral infarction; Z79.84 Long term (current) use of oral hypoglycemic drugs; Z87.891 Personal history of nicotine dependence; Z79.82 Long term (current) use of aspirin; Z79.02 Long term (current) use of antithrombotics/antiplatelets; Z79.899 Other long term (current) drug therapy; R13.12 Dysphagia, oropharyngeal phase
CPT/HCPCS: 36415; 74230; 80048; 80053; 82962; 83735; 84100; 85027; 92507; 92523; 92526; 92610; 92611; 94762; 97110; 97112; 97116; 97129; 97130; 97162; 97166; 97530; 97535; 97802; 97803

== ENCOUNTER → 2023-12-25 | Outpatient (CLI) | payer SELFPAY | END | disposition home or self-care (01) | PROVIDERS: Visit Provider Internal Medicine | DX: G47.30 Sleep apnea, unspecified (principal) | CPT/HCPCS: 95811 ==